=== PATIENT | female | born 1945 | race Two or more races ===

== ENCOUNTER 2018-10-26 21:44 | Inpatient (IN) | payer MEDICARE, MEDICAID ==
--- NOTE | 2018-10-26 22:33 | ED Physician Chart ---
ED Chief Complaint/HPI - Patient Information Date Seen:: 10/26/18 Time Seen:: 22:00 Chief Complaint:: chest and abdominal pain History of Present Illness:: Patient's had abdominal pain, chest pain and dizziness for the last 3 days. No vomiting or diarrhea. No dysuria. No fever. Allergies:: Allergies Allergy/AdvReac Type Severity Reaction Status Date / Time No Known Allergies Allergy Verified 10/26/18 21:55 Vitals:: Vital Signs - 8 hr 10/26/18 21:50 Temp 97.3 F HR 87 RR 17 BP 157/96 O2 Sat % 98 Historian:: Patient, Family Member Review:: Nurse's Note Reviewed ED Review of Systems - Review of Systems General/Constitutional: No fever, No chills, No weight loss, No weakness, No diaphoresis, No edema, No loss of appetite Skin: No skin lesions, No rash, No bruising Head: No headache, No light-headedness Eyes: No loss of vision, No pain, No diplopia ENT: No earache, No nasal drainage, No sore throat, No tinnitus Neck: No neck pain, No swelling, No thyromegaly, No stiffness, No mass noted Cardio Vascular: Chest pain, No palpitations, No PND, No orthopnea, No edema Pulmonary: No SOB, No cough, No sputum, No wheezing GI: No nausea, No vomiting, No diarrhea, Pain, No melena, No hematochezia, No constipation, No hematemesis G/U: No dysuria, No frequency, No hematuria Musculoskeletal: No bone or joint pain, No back pain, No muscle pain Endocrine: No polyuria, No polydipsia Psychiatric: No prior psych history, No depression, No anxiety, No suicidal ideation Hematopoietic: No bruising, No lymphadenopathy Allergic/Immuno: No urticaria, No angioedema Neurological: No syncope, No focal symptoms, No weakness, No paresthesia, No headache, No seizure, No dizziness, No confusion, No vertigo ED Past Medical History - Past Medical History Past Medical History: HTN, DM, Other (cirrhosis for 5 years; anemia) Family History: Heart disease, Diabetes Melitus, HTN, Cancer Social History: Non Smoker, No Alcohol Surgical History: None Psychiatricy History: None Medication: Reviewed Family Medical History - Family Member Daughter History Unknown: Yes ED Physical Exam - Physical Examination General/Constitutional: Awake Other Gen/Cons comments:: Abdomen very distended; mildly chronically ill-appearing; in no acute distress Head: Atraumatic Eyes: Lids, conjuctiva normal, PERRL Skin: Nl inspection ENMT: External ears, nose nl Other ENMT comments:: Edentulous with upper dentures Neck: No nuchal rigidity Respiratory: Nl effort/Exclusion, Clear to Auscultation Cardio Vascular: RRR, No murmur, gallop, rubs Other GI comments:: Diffuse abdominal tenderness more on the right side Extremities: Normal digits & nails Other Extremities comments:: 2 out of 4 pretibial pitting edema Neuro/Psych: No focal deficits ED Labs/Radiology/EKG Results - Lab Results Results: Laboratory Tests 10/26/18 21:52 POC Glucose 304 H Laboratory Results WBC 3.0 Th/cmm (4.8-10.8) L 10/26/18 22:20 RBC 3.04 Mil/cmm (3.80-5.20) L 10/26/18 22:20 Hgb 9.4 gm/dL (12-16) L 10/26/18 22:20 Hct 28.0 % (41.0-60) L 10/26/18 22:20 MCV 92.2 fl (81-100) 10/26/18 22:20 MCH 31.1 pg (27.0-31.0) H 10/26/18 22:20 MCHC Differential 33.7 pg (28.0-36.0) 10/26/18 22:20 RDW 14.4 % (11.5-20.0) 10/26/18 22:20 Plt Count 80 Th/cmm (150-400) L 10/26/18 22:20 MPV 7.9 fl 10/26/18 22:20 Neutrophils % 59.8 % (40.0-80.0) 10/26/18 22:20 Lymphocytes % 22.9 % (20.0-50.0) 10/26/18 22:20 Monocytes % 13.9 % (2.0-10.0) H 10/26/18 22:20 Eosinophils % 2.8 % (0.0-5.0) 10/26/18 22:20 Basophils % 0.6 % (0.0-2.0) 10/26/18 22:20 Sodium 135 mEq/L (136-145) L 10/26/18 22:20 Potassium 3.7 mEq/L (3.5-5.1) 10/26/18 22:20 Chloride 103 mEq/L (98-107) 10/26/18 22:20 Carbon Dioxide 25.3 mEq/L (21.0-31.0) 10/26/18 22:20 Anion Gap 10.4 (7.0-16.0) 10/26/18 22:20 BUN 14 mg/dL (7-25) 10/26/18 22:20 Creatinine 0.9 mg/dL (0.6-1.2) 10/26/18 22:20 Est GFR ( Amer) TNP 10/26/18 22:20 Est GFR (Non-Af Amer) TNP 10/26/18 22:20 BUN/Creatinine Ratio 15.6 10/26/18 22:20 Glucose 327 mg/dL (70-105) H 10/26/18 22:20 POC Glucose 304 MG/DL (70 - 105) H 10/26/18 21:52 Calcium 8.8 mg/dL (8.6-10.3) 10/26/18 22:20 Magnesium 1.7 mg/dL (1.9-2.7) L 10/26/18 22:20 Lipase 42 U/L (11-82) 10/26/18 22:20 - Radiology Results Results: Chest x-ray was negative ED Assessment - Assessment General Assessment: The radiologist called me and stated there were 2 bubbles next to the transverse duodenum which could represent free air. Radiologist suggested repeating CT of abdomen and pelvis with oral contrast. Spoke to Pattie and patient to be admitted to telemetry. ED Septic Shock - . Is Septic Shock (SBP<90, OR Lactate>4 mmol\L) present?: No - <6hrs of presentation: Vital Signs: Vital Signs - 8 hr 10/26/18 21:50 Temp 97.3 F HR 87 RR 17 BP 157/96 O2 Sat % 98 ED Reassessment (Disposition) - Reassessment Reassessment Condition:: Unchanged - Diagnosis Diagnosis:: Cirrhosis with ascites; pancytopenia - Patient Disposition Admitted to:: Telemetry Spoke to:: pattie Admitting Medical Physician:: Sadi Mack Condition at Disposition:: Stable, Unchanged
[2018-10-26 22:35] LABS: % BASOPHILS 0.6 % (0.0-2.0); % EOSINOPHILS 2.8 % (0.0-5.0); % LYMPHOCYTES 22.9 % (20.0-50.0); % MONOCYTES 13.9 % (2.0-10.0); % NEUTROPHILS 59.8 % (40.0-80.0); EOSINOPHILE ABSOLUTE 0.1 Th/cmm (0.1-0.4); HEMOGLOBIN 9.4 gm/dL (12-16); LYMPHOCYTE ABSOLUTE 0.7 Th/cmm (1.5-3.0); MEAN CELL VOLUME 92.2 fl (81-100); MEAN CORPUSCULAR HEMOGLOBIN 31.1 pg (27.0-31.0); MEAN CORPUSCULAR HGB CONC 33.7 pg (28.0-36.0); MEAN PLATELET VOLUME 7.9 fl; MONOCYTE ABSOLUTE 0.4 Th/cmm (0.3-1.0); NEUTROPHILE ABSOLUTE 1.8 Th/cmm (1.8-8.0); PLATELET COUNT 80 Th/cmm (150-400); RED BLOOD COUNT 3.04 Mil/cmm (3.80-5.20); RED CELL DISTRIBUTION WIDTH 14.4 % (11.5-20.0)
[2018-10-26 23:04] LABS: ANION GAP 10.4 (7.0-16.0); BUN - UREA NITROGEN 14 mg/dL (7-25); CALCIUM SERUM 8.8 mg/dL (8.6-10.3); CARBON DIOXIDE 25.3 mEq/L (21.0-31.0); CHLORIDE 103 mEq/L (98-107); CREATININE - SERUM 0.9 mg/dL (0.6-1.2); GLUCOSE 327 mg/dL (70-105); LIPASE 42 U/L (11-82); MAGNESIUM 1.7 mg/dL (1.9-2.7); POTASSIUM SERUM 3.7 mEq/L (3.5-5.1); SODIUM SERUM 135 mEq/L (136-145)
[2018-10-26 23:05] LABS: ALB/GLOB RATIO 0.7 (1.0-1.8); ALBUMIN 2.8 gm/dL (3.7-5.3); BILIRUBIN,DIRECT 0.54 mg/dL (0.0-0.2); BILIRUBIN,TOTAL 1.4 mg/dL (0.3-1.0); TOTAL PROTEIN,SERUM 6.8 gm/dL (6.0-8.3)
[2018-10-26 23:11] LABS: URINE SOURCE RANDOM
[2018-10-26 23:14] LABS: URINE BILIRUBIN NEGATIVE (NEGATIVE); URINE BLOOD MODERATE (NEGATIVE); URINE GLUCOSE (UA) >=1000 mg/dL (NEGATIVE); URINE KETONE NEGATIVE (NEGATIVE); URINE LEUKOCYTE ESTERASE TRACE (NEGATIVE); URINE MICROSCOPIC INDICATED? YES; URINE NITRATE NEGATIVE (NEGATIVE); URINE PROTEIN 30 mg/dL (NEGATIVE)
[2018-10-26 23:32] LABS: URINE CLARITY HAZY (CLEAR); URINE COLOR YELLOW
[2018-10-26 23:33] LABS: URINE BACTERIA MODERATE /hpf (NONE SEEN); URINE EPITHELIAL CELLS FEW /lpf (FEW); URINE RBC 0-2 /hpf (0-5)
[2018-10-27] MEDS ORDERED: Albuterol Nebulizer 2.5mg/3mL HHN PRN (04:23)
[2018-10-27] MEDS ORDERED: Maalox 30 mL Cup PO PRN (04:23)
[2018-10-27] MEDS ORDERED: Ipratropium Neb 0.5 mg/2.5 mL UD HHN PRN (04:23)
[2018-10-27] MEDS ORDERED: guaiFENesin 200 MG/10 ML UDC PO PRN (04:23)
[2018-10-27] MEDS: INSULIN LISPRO SLIDING SCALE 100 UNITS/ML UNIT SUBQ SCH ×4 (08:49→20:22)
[2018-10-27] MEDS: Enoxaparin 40 mg/0.4 mL 0.4mL Syr SUBQ SCH ×2 (08:54→20:21)
--- NOTE | 2018-10-27 09:10 | Diagnostic Imaging Report ---
Exam: CT examination abdomen pelvis. HISTORY: Abdominal pain distention. Total DLP equals 474 CTDI equals 9.2 Findings: Multiple contiguous thin section of the abdomen pelvis were obtained from lower thorax to pubic symphysis without the administration of oral or intravenous contrast material, no prior studies available comparison. The study demonstrates normal aeration of lung parenchyma the bases. Mild right basilar atelectasis is noted. There is evidence of for splenomegaly. There is evidence for splenic varices, surrounding mesenteric edema. Moderate amount of the cervix fluid is noted in the abdomen. The stomach serial distended with fluid content. There is a question of a small amount of the air in transverse portion of the duodenum which might represent pneumoperitoneum, this might represent peritendinitis clinical correlation recommended. The gallbladder is not visualized. Pancreas poorly seen. The kidneys demonstrate no evidence of obstructive uropathy or nephrolithiasis. There is evidence for midline supraumbilical hernia containing fluid, small bowel herniation cannot be excluded There is evidence for diverticulosis without diverticulitis. Calcified fibroid uterus. IMPRESSION: Splenomegaly Moderate amount of ascites Most likely portal venous hypertension. Mesenteric edema. Question of air collection around the transverse portion of duodenum this might represent peritonitis. Significant distended stomach with gastric content. Supraumbilical hernia with fluid content, small bowel herniation cannot be excluded. Mild diverticulosis without diverticulitis. Calcified fibroid uterus.
--- NOTE | 2018-10-27 09:10 | Diagnostic Imaging Report ---
Exam: Portable chest x-ray HISTORY: Pain Findings: Portable examination of chest at 2230 reviewed, no prior studies available comparison. The study demonstrates no active pulmonic infiltrates or effusions. Bony thorax intact. Degenerative changes shoulder joints appreciated. IMPRESSION no acute disease.
[2018-10-27 09:49] VITALS: BP 132/65
--- NOTE | 2018-10-27 10:25 | History & Physical ---
ADMIT DATE: 10/27/2018 DICTATED FOR: Dr. Sadi Mack. CHIEF COMPLAINT: Abdominal pain and chest discomfort. HISTORY OF PRESENT ILLNESS: This is a 73-year-old [place] speaking only female, who is accompanied by grandson at bedside. According to grandson at bedside, the patient has been having dizziness associated with chest discomfort for 3 days. The patient was also complaining of abdominal pain every time after she eats certain foods. The patient states that she does not remember what type of foods that it was that she ate that triggered her abdominal pain. The patient also complains of feeling bloated for about a month. No reports of any fevers at home. For further management, the patient is admitted to the telemetry unit. PAST MEDICAL HISTORY: Hypertension, diabetes, liver cirrhosis, anemia. FAMILY HISTORY: Noncontributory. SOCIAL HISTORY: The patient denies any alcohol or illicit drug usage, tobacco smoking. SURGICAL HISTORY: None. MEDICATIONS: Metformin 500 mg p.o. b.i.d. FAMILY HISTORY: Noncontributory. REVIEW OF SYSTEMS: GENERAL: Denies any fevers, any chills. CARDIOVASCULAR: Denies any chest pain. RESPIRATORY: Denies any shortness of breath. GASTROINTESTINAL: Denies nausea, vomiting, abdominal pain, but complains of bloatedness. All other systems are reviewed and are negative. PHYSICAL EXAMINATION: GENERAL: Elderly female, well developed, well nourished, in no apparent distress. VITAL SIGNS: Temperature 98.3, heart rate 84, blood pressure 132/65, respiration 18, O2 96%. HEAD: Normocephalic, atraumatic. NECK: Supple. No mass. LUNGS: Clear bilaterally. HEART: Regular rhythm. ABDOMEN: Soft, nontender, nondistended. EXTREMITIES: No edema noted. LABORATORY DATA: WBC 3.0, H and H 9.4 and 38.0. Sodium 135, potassium 3.7, chloride 103, BUN 14, creatinine 0.9, magnesium of 1.7. The patient had urinalysis done, positive for UTI. DIAGNOSTICS: The patient had a CT of the abdomen and pelvis done; impression is moderate amount of ascites, most likely portal venous hypertension; question of air collection around the transverse portion of the duodenum, this might represent peritonitis; mild diverticulosis without diverticulitis. PLAN: The patient to be admitted to the telemetry unit. We will get Cardiology as well as GI consultation. We will keep the patient on clear liquid diet for now, Accu-Chek a.c. and at bedtime. We will do deep venous thrombosis prophylaxis and we will do gastrointestinal prophylaxis as well. We will get followup labs for tomorrow morning. We will start the patient on empiric IV antibiotics for urinary tract infection of Levaquin 500 mg IV q. 24 hours. We will continue to follow this patient. JOB# [id number]
--- NOTE | 2018-10-27 14:17 | General Progress Note ---
Subjective - Review of Systems Service Date: 10/27/18 Subjective: --- Patient complaining of abdominal pain Objective - Results Result Diagrams: 10/26/18 22:20 10/26/18 22:20 Recent Labs: Laboratory Last Values WBC 3.0 Th/cmm (4.8-10.8) L 10/26/18 22:20 RBC 3.04 Mil/cmm (3.80-5.20) L 10/26/18 22:20 Hgb 9.4 gm/dL (12-16) L 10/26/18 22:20 Hct 28.0 % (41.0-60) L 10/26/18 22:20 MCV 92.2 fl (81-100) 10/26/18 22:20 MCH 31.1 pg (27.0-31.0) H 10/26/18 22:20 MCHC Differential 33.7 pg (28.0-36.0) 10/26/18 22:20 RDW 14.4 % (11.5-20.0) 10/26/18 22:20 Plt Count 80 Th/cmm (150-400) L 10/26/18 22:20 MPV 7.9 fl 10/26/18 22:20 Neutrophils % 59.8 % (40.0-80.0) 10/26/18 22:20 Lymphocytes % 22.9 % (20.0-50.0) 10/26/18 22:20 Monocytes % 13.9 % (2.0-10.0) H 10/26/18 22:20 Eosinophils % 2.8 % (0.0-5.0) 10/26/18 22:20 Basophils % 0.6 % (0.0-2.0) 10/26/18 22:20 Sodium 135 mEq/L (136-145) L 10/26/18 22:20 Potassium 3.7 mEq/L (3.5-5.1) 10/26/18 22:20 Chloride 103 mEq/L (98-107) 10/26/18 22:20 Carbon Dioxide 25.3 mEq/L (21.0-31.0) 10/26/18 22:20 Anion Gap 10.4 (7.0-16.0) 10/26/18 22:20 BUN 14 mg/dL (7-25) 04/19/19 22:20 Creatinine 0.9 mg/dL (0.6-1.2) 10/26/18 22:20 Est GFR ( Amer) TNP 10/26/18 22:20 Est GFR (Non-Af Amer) TNP 10/26/18 22:20 BUN/Creatinine Ratio 15.6 10/26/18 22:20 Glucose 327 mg/dL (70-105) H 10/26/18 22:20 POC Glucose 182 MG/DL (70 - 105) H 10/27/18 11:33 Whole Bld Lactic Acid 1.13 mmol/L (0.60-1.99) 10/26/18 22:20 Calcium 8.8 mg/dL (8.6-10.3) 10/26/18 22:20 Magnesium 1.7 mg/dL (1.9-2.7) L 10/26/18 22:20 Total Bilirubin 1.4 mg/dL (0.3-1.0) H 10/26/18 22:20 Direct Bilirubin 0.54 mg/dL (0.0-0.2) H 10/26/18 22:20 AST 44 U/L (13-39) H 10/26/18 22:20 ALT 22 U/L (7-52) 10/26/18 22:20 Alkaline Phosphatase 269 U/L (34-104) H 10/26/18 22:20 Troponin I 0.01 ng/mL (0.01-0.05) 10/26/18 22:20 B-Natriuretic Peptide 52.4 pg/mL (5.0-100.0) 10/26/18 22:20 Total Protein 6.8 gm/dL (6.0-8.3) 10/26/18 22:20 Albumin 2.8 gm/dL (3.7-5.3) L 10/26/18 22:20 Globulin 4.0 gm/dL 10/26/18 22:20 Albumin/Globulin Ratio 0.7 (1.0-1.8) L 10/26/18 22:20 Lipase 42 U/L (11-82) 10/26/18 22:20 Urine Source RANDOM 10/26/18 22:00 Urine Color YELLOW 10/26/18 22:00 Urine Clarity HAZY (CLEAR) 10/26/18 22:00 Urine pH 6.0 (4.6 - 8.0) 10/26/18 22:00 Ur Specific [place] 1.020 (1.005-1.030) 10/26/18 22:00 Urine Protein 30 mg/dL (NEGATIVE) H 10/26/18 22:00 Urine Glucose (UA) >=1000 mg/dL (NEGATIVE) H 10/26/18 22:00 Urine Ketones NEGATIVE mg/dL (NEGATIVE) 10/26/18 22:00 Urine Blood MODERATE (NEGATIVE) H 10/26/18 22:00 Urine Nitrate NEGATIVE (NEGATIVE) 10/26/18 22:00 Urine Bilirubin NEGATIVE (NEGATIVE) 10/26/18 22:00 Urine Urobilinogen 4.0 E.U./dL (0.2 - 1.0) H 10/26/18 22:00 Ur Leukocyte Esterase TRACE (NEGATIVE) H 10/26/18 22:00 Urine RBC 0-2 /hpf (0-5) 10/26/18 22:00 Urine WBC 6-10 /hpf (0-5) H 10/26/18 22:00 Ur Epithelial Cells FEW /lpf (FEW) 10/26/18 22:00 Urine Bacteria MODERATE /hpf (NONE SEEN) H 10/26/18 22:00 - Physical Exam Vitals and I&O: Vital Signs Temp 97.1 F 10/27/18 12:16 Pulse 81 10/27/18 12:16 Resp 18 10/27/18 13:17 BP 125/65 10/27/18 12:16 Pulse Ox 98 10/27/18 12:16 Intake & Output 10/26/18 10/27/18 10/27/18 18:59 06:59 18:59 Weight (lbs) 56.245 kg 59.874 kg Other: Weight Source Standing scale Bedscale Active Medications: Current Medications Al Hydrox/Mg Hydrox/Simethicone (Maalox) 30 ml PO Q6HR PRN PRN Reason: Dyspepsia Stop: 12/26/18 04:22 Albuterol Sulfate (Albuterol 2.5mg/3ml Neb Ud) 2.5 mg HHN Q2HRT PRN PRN Reason: Shortness of Breath or Wheeze Stop: 12/26/18 04:22 Enoxaparin Sodium (Lovenox) 40 mg SUBQ Q12HR [facility] Stop: 12/26/18 08:59 Last Admin: 10/27/18 08:54 Dose: Not Given Guaifenesin (Robitussin) 100 mg PO Q4H PRN PRN Reason: Cough or Congestion Stop: 12/26/18 04:22 Insulin Human Lispro (Humalog Insulin Sliding Scale) 0 units SUBQ ACHS [facility]; Protocol Stop: 12/26/18 07:29 Last Admin: 10/27/18 12:35 Dose: 2 units Ipratropium [place] (Atrovent Neb 0.5mg/2.5ml) 0.5 mg HHN Q2HRT PRN PRN Reason: Shortness of Breath or Wheeze Stop: 12/26/18 04:22 Metformin HCl (Glucophage) 500 mg PO BID [facility] Stop: 12/26/18 16:59 Ondansetron HCl (Zofran) 4 mg IV Q8H PRN PRN Reason: Nausea / Vomiting Stop: 12/26/18 04:22 Pantoprazole Sodium (Protonix) 40 mg IVP DAILY [facility] Stop: 12/26/18 08:59 Last Admin: 10/27/18 08:49 Dose: 40 mg General: Alert, Oriented x3, No acute distress HEENT: Mucous membr. moist/pink Neck: Supple, JVD, +2 carotid pulse wo bruit (flat) Cardiovascular: Regular rate, Normal S1, Normal S2, Systolic murmurs Abdomen: Bowel sounds, Soft, Splenomegaly, Distended, Other (small ascites) Extremities: Pulses (normal) Neurological: Normal gait, Normal speech, Strength at 5/5 X4 ext, Normal tone, Cranial nerves 3-12 NL, Reflexes 2+ Assessment/Plan - Assessment Assessment: Cirrhosis of liver Splenomegaly Anemia Thrombocytopenia Diabetes mellitus type 2 insulin-dependent Supraumbilical hernia Diverticulosis Hypo magnesium - Plan Plan: Patient to have a GI consult Echocardiogram magnesium supplement Nutritional Asmnt/Malnutr-PDOC - Dietary Evaluation Malnutrition Findings (Please click <Entered> for more info): Nutritional Asmnt/Malnutrition Start: 10/27/18 13: 11 Text: Status: Active Freq: Protocol: Document 10/27/18 13:11 MMHERI (Rec: 10/27/18 13:21 [facility] Nutritional Asmnt/Malnutrition Patient General Information Nutritional Screening High Risk Consult Diagnosis Chest pain Pertinent Medical Hx/Surgical Hx HTN, diabetes, liver cirrhosis , anemia Subjective Information Kinyarwanda speaking Current Diet Order/ Nutrition Support Clear liquid Patient / S.O Not Indicated Pertinent Medications maalox, humalog, metformin, zofran, protonix Pertinent Labs (10/26) Na 135, glucose 182-327 , Mg 1.7, albumin 2.8 Nutritional Hx/Data Height 1.5 m Height (Calculated Centimeters) 149.9 Current Weight (lbs) 59.874 kg Weight (Calculated Kilograms) 59.9 Weight (Calculated Grams) 69842.2 [place] Body Weight 97.5 % [place] Body Weight 135 Body Mass Index (BMI) 26.6 Recent Weight Change No Weight Status Overweight GI Symptoms GI Symptoms None Last BM none noted since admission Difficult in: None Food Allergies No Cultural/Ethnic/Quaker Belief none indicated Usual diet at home unknown Skin Integrity/Comment: Heri 17, intact Estimated Nutritional Goals BEE in Kcals: Using Current wt Calories/Kcals/Kg CBW 60kg 22-27 kcal/kg Kcals Calculated ~9144-0289 kcal/day Protein: Using Current wt Protein g/k.8-1 gm/kg Protein Calculated ~50-60 gm/day Fluid: ml ~7551-9832 ml/day Nutritional Problem 2. Problem Problem Inadequate oral intake related to Etiology diet order not progressed Signs/Symptoms: aeb Meeting <50% of nutrient needs on clear liquid diet 1. Problem Problem Altered nutrition related lab values related to Etiology uncontrolled hyperglycemia aeb Signs/Symptoms: glucose 182-327 Intervention/Recommendation Comments 1. WHen medically appropriate, advance diet to 45 gm CCHO 2. MD to continue to modify insulin regimen for optimal glycemic control Expected Outcomes/Goals Expected Outcomes/Goals Diet progresses to 45 gm CCHO, glucose normalizes, oral intake <75% of meals, weight stable F/U MR 10/30-
[2018-10-27] MEDS ORDERED: Mag Sulfate 2gm/50mL Premix 2 GM/50 ML BAG IV ONE (14:19)
[2018-10-27] MEDS: cefTRIAXone 1 GM in Sodium Chloride 0.9% 50 ML IV SCH (22:18)
--- NOTE | 2018-10-28 01:40 | Consultation ---
DATE OF CONSULTATION: 10/27/[address] Mack. HISTORY AND PHYSICAL: This is a 73-year-old female patient, recently was brought in by the grandson complaining of weakness, dizziness, and abdominal pain. No nausea or vomiting. PAST MEDICAL HISTORY: Diabetes mellitus type 2, cirrhosis of the liver, splenomegaly, anemia, ascites, thrombocytopenia; diabetes mellitus type 2, insulin dependence; supraumbilical hernia, diverticulosis, hypomagnesemia, hypokalemia, anemia, and thrombocytopenia. FAMILY HISTORY: Unremarkable. SOCIAL HISTORY: No history of smoking or alcohol abuse. ALLERGIES: None. PHYSICAL EXAMINATION: VITAL SIGNS: Blood pressure 130/80, pulse 80, and respirations 28. HEAD: Normocephalic. No lumps or bumps. EYES: Pupils equal, reactive to light. Fundi show AV nicking, sclerae white, conjunctivae pink. NECK: Carotid 2+. Normal upstroke. JVD flat. Thyroid not palpable. Lymph nodes not palpable. CHEST: Shows increased AP diameter. No kyphosis or scoliosis. LUNGS: Bilateral bronchovesicular breath sounds. Occasional wheeze. No rales. HEART: PMI fifth intercostal space with lateral to midclavicular line. S1, S2, S3, S4, soft systolic murmur. ABDOMEN: Soft. Liver, spleen not palpable. No organomegaly. Bowel sounds active. NEUROLOGIC: Unremarkable. EXTREMITIES: Peripheral pulses 2+. No pedal edema. CLINICAL IMPRESSION: Cirrhosis of liver; diabetes mellitus type 2, insulin-dependent; anemia, iron deficiency; thrombocytopenia; insulin-dependent diabetes mellitus; supraumbilical hernia; diverticulosis; hypomagnesemia; hypokalemia; anemia; thrombocytopenia; splenomegaly, and ascites. PLAN: Admit the patient. We will continue present management. Have GI consult and monitor the patient. We will get echocardiogram to rule out any cardiomegaly with pericardial effusion. [facility]# [id number]
[2018-10-28 06:17] LABS: % BASOPHILS 0.8 % (0.0-2.0); % EOSINOPHILS 3.3 % (0.0-5.0); % LYMPHOCYTES 26.6 % (20.0-50.0); % MONOCYTES 11.8 % (2.0-10.0); % NEUTROPHILS 57.5 % (40.0-80.0); EOSINOPHILE ABSOLUTE 0.1 Th/cmm (0.1-0.4); HEMATOCRIT 27.7 % (41.0-60); HEMOGLOBIN 9.3 gm/dL (12-16); LYMPHOCYTE ABSOLUTE 0.9 Th/cmm (1.5-3.0); MEAN CELL VOLUME 92.5 fl (81-100); MEAN CORPUSCULAR HEMOGLOBIN 30.9 pg (27.0-31.0); MEAN CORPUSCULAR HGB CONC 33.4 pg (28.0-36.0); MEAN PLATELET VOLUME 8.1 fl; MONOCYTE ABSOLUTE 0.4 Th/cmm (0.3-1.0); NEUTROPHILE ABSOLUTE 2.1 Th/cmm (1.8-8.0); PLATELET COUNT 60 Th/cmm (150-400); RED CELL DISTRIBUTION WIDTH 14.2 % (11.5-20.0)
[2018-10-28 06:30] LABS: ANION GAP 9.1 (7.0-16.0); BUN - UREA NITROGEN 16 mg/dL (7-25); CALCIUM SERUM 8.5 mg/dL (8.6-10.3); CARBON DIOXIDE 22.5 mEq/L (21.0-31.0); CHLORIDE 109 mEq/L (98-107); CREATININE - SERUM 0.7 mg/dL (0.6-1.2); GLUCOSE 138 mg/dL (70-105); POTASSIUM SERUM 3.6 mEq/L (3.5-5.1); SODIUM SERUM 137 mEq/L (136-145)
[2018-10-28] MEDS: INSULIN LISPRO SLIDING SCALE 100 UNITS/ML UNIT SUBQ SCH ×4 (06:35→21:42)
[2018-10-28 07:10] LABS: WHITE BLOOD COUNT 3.5 Th/cmm (4.8-10.8)
[2018-10-28] MEDS: Enoxaparin 40 mg/0.4 mL 0.4mL Syr SUBQ SCH ×2 (10:04→21:46)
--- NOTE | 2018-10-28 14:48 | General Progress Note ---
Subjective - Review of Systems Service Date: 10/28/18 Subjective: --- Patient complaining of abdominal pain no complaint of shortness of breath Objective - Results Result Diagrams: 10/28/18 05:35 10/28/18 05:35 Recent Labs: Laboratory Last Values WBC 3.5 Th/cmm (4.8-10.8) L 10/28/18 05:35 RBC 3.00 Mil/cmm (3.80-5.20) L 10/28/18 05:35 Hgb 9.3 gm/dL (12-16) L 10/28/18 05:35 Hct 27.7 % (41.0-60) L 10/28/18 05:35 MCV 92.5 fl (81-100) 10/28/18 05:35 MCH 30.9 pg (27.0-31.0) 10/28/18 05:35 MCHC Differential 33.4 pg (28.0-36.0) 10/28/18 05:35 RDW 14.2 % (11.5-20.0) 10/28/18 05:35 Plt Count 60 Th/cmm (150-400) L 10/28/18 05:35 MPV 8.1 fl 10/28/18 05:35 Neutrophils % 57.5 % (40.0-80.0) 10/28/18 05:35 Lymphocytes % 26.6 % (20.0-50.0) 10/28/18 05:35 Monocytes % 11.8 % (2.0-10.0) H 10/28/18 05:35 Eosinophils % 3.3 % (0.0-5.0) 10/28/18 05:35 Basophils % 0.8 % (0.0-2.0) 10/28/18 05:35 Sodium 137 mEq/L (136-145) 10/28/18 05:35 Potassium 3.6 mEq/L (3.5-5.1) 10/28/18 05:35 Chloride 109 mEq/L (98-107) H 10/28/18 05:35 Carbon Dioxide 22.5 mEq/L (21.0-31.0) 10/28/18 05:35 Anion Gap 9.1 (7.0-16.0) 10/28/18 05:35 BUN 16 mg/dL (7-25) 10/28/18 05:35 Creatinine 0.7 mg/dL (0.6-1.2) 10/28/18 05:35 Est GFR ( Amer) TNP 10/28/18 05:35 Est GFR (Non-Af Amer) TNP 10/28/18 05:35 BUN/Creatinine Ratio 22.9 10/28/18 05:35 Glucose 138 mg/dL (70-105) H 10/28/18 05:35 POC Glucose 121 MG/DL (70 - 105) H 10/28/18 11:42 Whole Bld Lactic Acid 1.13 mmol/L (0.60-1.99) 10/26/18 22:20 Calcium 8.5 mg/dL (8.6-10.3) L 10/28/18 05:35 Magnesium 2.0 mg/dL (1.9-2.7) 10/28/18 05:35 Total Bilirubin 1.4 mg/dL (0.3-1.0) H 10/26/18 22:20 Direct Bilirubin 0.54 mg/dL (0.0-0.2) H 10/26/18 22:20 AST 44 U/L (13-39) H 10/26/18 22:20 ALT 22 U/L (7-52) 10/26/18 22:20 Alkaline Phosphatase 269 U/L (34-104) H 10/26/18 22:20 Troponin I 0.01 ng/mL (0.01-0.05) 10/26/18 22:20 B-Natriuretic Peptide 50.1 pg/mL (5.0-100.0) 10/28/18 05:35 Total Protein 6.8 gm/dL (6.0-8.3) 10/26/18 22:20 Albumin 2.8 gm/dL (3.7-5.3) L 10/26/18 22:20 Globulin 4.0 gm/dL 10/26/18 22:20 Albumin/Globulin Ratio 0.7 (1.0-1.8) L 10/26/18 22:20 Lipase 42 U/L (11-82) 10/26/18 22:20 Urine Source RANDOM 10/26/18 22:00 Urine Color YELLOW 10/26/18 22:00 Urine Clarity HAZY (CLEAR) 10/26/18 22:00 Urine pH 6.0 (4.6 - 8.0) 10/26/18 22:00 Ur Specific [place] 1.020 (1.005-1.030) 10/26/18 22:00 Urine Protein 30 mg/dL (NEGATIVE) H 10/26/18 22:00 Urine Glucose (UA) >=1000 mg/dL (NEGATIVE) H 10/26/18 22:00 Urine Ketones NEGATIVE mg/dL (NEGATIVE) 10/26/18 22:00 Urine Blood MODERATE (NEGATIVE) H 10/26/18 22:00 Urine Nitrate NEGATIVE (NEGATIVE) 10/26/18 22:00 Urine Bilirubin NEGATIVE (NEGATIVE) 10/26/18 22:00 Urine Urobilinogen 4.0 E.U./dL (0.2 - 1.0) H 10/26/18 22:00 Ur Leukocyte Esterase TRACE (NEGATIVE) H 10/26/18 22:00 Urine RBC 0-2 /hpf (0-5) 10/26/18 22:00 Urine WBC 6-10 /hpf (0-5) H 10/26/18 22:00 Ur Epithelial Cells FEW /lpf (FEW) 10/26/18 22:00 Urine Bacteria MODERATE /hpf (NONE SEEN) H 10/26/18 22:00 - Physical Exam Vitals and I&O: Vital Signs Temp 97.5 F 10/28/18 12:00 Pulse 76 10/28/18 12:00 Resp 18 10/28/18 12:00 BP 128/74 10/28/18 12:00 Pulse Ox 98 10/28/18 12:00 Intake & Output 10/27/18 10/28/18 10/28/18 18:59 06:59 18:59 Intake Total 500 290 Balance 500 290 Weight (lbs) 59.874 kg 59.874 kg Intake: Intake, IV Amount 50 cefTRIAXone 1 gm In 50 Sodium Chloride 0.9% 50 ml @ 100 mls/hr IV Q24HR COUNTS INCLUDE 234 BEDS AT THE [facility] Rx#:[id number] Oral 500 240 Other: # Voids 3 2 # Bowel Movements 1 0 Stool Characteristics Soft Formed Brown Weight Source Bedscale Bedscale Active Medications: Current Medications Al Hydrox/Mg Hydrox/Simethicone (Maalox) 30 ml PO Q6HR PRN PRN Reason: Dyspepsia Stop: 12/26/18 04:22 Albuterol Sulfate (Albuterol 2.5mg/3ml Neb Ud) 2.5 mg HHN Q2HRT PRN PRN Reason: Shortness of Breath or Wheeze Stop: 12/26/18 04:22 Enoxaparin Sodium (Lovenox) 40 mg SUBQ Q12HR [facility] Stop: 12/26/18 08:59 Last Admin: 10/28/18 10:04 Dose: Not Given Guaifenesin (Robitussin) 100 mg PO Q4H PRN PRN Reason: Cough or Congestion Stop: 12/26/18 04:22 Ceftriaxone Sodium 1 gm/ (Sodium Chloride) 50 mls @ 100 mls/hr IV Q24HR COUNTS INCLUDE 234 BEDS AT THE [facility] Stop: 12/26/18 21:59 Last Infusion: 10/27/18 22:48 Dose: Infused Insulin Human Lispro (Humalog Insulin Sliding Scale) 0 units SUBQ ACHS COUNTS INCLUDE 234 BEDS AT THE [facility]; Protocol Stop: 12/26/18 07:29 Last Admin: 10/28/18 11:59 Dose: Not Given Ipratropium [place] (Atrovent Neb 0.5mg/2.5ml) 0.5 mg HHN Q2HRT PRN PRN Reason: Shortness of Breath or Wheeze Stop: 12/26/18 04:22 Ondansetron HCl (Zofran) 4 mg IV Q8H PRN PRN Reason: Nausea / Vomiting Stop: 12/26/18 04:22 Pantoprazole Sodium (Protonix) 40 mg IVP DAILY COUNTS INCLUDE 234 BEDS AT THE [facility] Stop: 12/26/18 08:59 Last Admin: 10/28/18 09:11 Dose: 40 mg General: Alert, Oriented x3, No acute distress HEENT: Mucous membr. moist/pink Neck: Supple, JVD, +2 carotid pulse wo bruit (flat) Cardiovascular: Regular rate, Normal S1, Normal S2, Systolic murmurs Abdomen: Bowel sounds, Soft, Splenomegaly, Distended, Other (small ascites) Extremities: Pulses (normal) Neurological: Normal gait, Normal speech, Strength at 5/5 X4 ext, Normal tone, Cranial nerves 3-12 NL, Reflexes 2+ Assessment/Plan - Assessment Assessment: Cirrhosis of liver Splenomegaly Anemia Thrombocytopenia Diabetes mellitus type 2 insulin-dependent Supraumbilical hernia Diverticulosis Hypo magnesium - Plan Plan: Patient to have a GI consult Echocardiogram magnesium supplement Nutritional Asmnt/Malnutr-PDOC - Dietary Evaluation Malnutrition Findings (Please click <Entered> for more info): Nutritional Asmnt/Malnutrition Start: 10/27/18 13: 11 Text: Status: Complete Freq: Protocol: Document 10/27/18 13:11 [email or web address] (Rec: 10/27/18 13:21 KAILEY KIRA- [email or web address]) Nutritional Asmnt/Malnutrition Patient General Information Nutritional Screening High Risk Consult Diagnosis Chest pain Pertinent Medical Hx/Surgical Hx HTN, diabetes, liver cirrhosis , anemia Subjective Information Patient states she would like some more jello; fair appetite . Current Diet Order/ Nutrition Support Clear liquid Patient / S.O Not Indicated Pertinent Medications maalox, humalog, metformin, zofran, protonix Pertinent Labs (10/26) Na 135, glucose 182-327 , Mg 1.7, albumin 2.8 Nutritional Hx/Data Height 1.5 m Height (Calculated Centimeters) 149.9 Current Weight (lbs) 59.874 kg Weight (Calculated Kilograms) 59.9 Weight (Calculated Grams) 88769.2 [place] Body Weight 97.5 % [place] Body Weight 135 Body Mass Index (BMI) 26.6 Recent Weight Change No Weight Status Overweight GI Symptoms GI Symptoms None Last BM none noted since admission Difficult in: None Food Allergies No Cultural/Ethnic/Mu-Ism Belief none indicated Usual diet at home unknown Skin Integrity/Comment: Heri 17, intact Estimated Nutritional Goals BEE in Kcals: Using Current wt Calories/Kcals/Kg CBW 60kg 22-27 kcal/kg Kcals Calculated ~3216-7101 kcal/day Protein: Using Current wt Protein g/k.8-1 gm/kg Protein Calculated ~50-60 gm/day Fluid: ml ~3372-9473 ml/day Nutritional Problem 2. Problem Problem Inadequate oral intake related to Etiology diet order not progressed Signs/Symptoms: aeb Meeting <50% of nutrient needs on clear liquid diet 1. Problem Problem Altered nutrition related lab values related to Etiology uncontrolled hyperglycemia aeb Signs/Symptoms: glucose 182-327 Intervention/Recommendation Comments 1. WHen medically appropriate, advance diet to 45 gm CCHO 2. MD to continue to modify insulin regimen for optimal glycemic control Expected Outcomes/Goals Expected Outcomes/Goals Diet progresses to 45 gm CCHO, glucose normalizes, oral intake <75% of meals, weight stable F/U MR 10/30-
--- NOTE | 2018-10-28 16:09 | Internal Medicine Prog Note ---
Internal Medicine Subjective - Subjective Service Date: 10/28/18 (patient seen and examined. awake, alert refused paracentesis today explained to patient importance of paracentesis patient refused she states that she does not want any procedures done at this time. encouraged patient for paracentesis to be done still refused. ) Patient seen and examined:: with staff Patient is:: awake, verbal Per staff patient has:: tolerating meds, refusing care Internal Medicine Objective - Results Result Diagrams: 10/28/18 05:35 10/28/18 05:35 Recent Labs: Laboratory Last Values WBC 3.5 Th/cmm (4.8-10.8) L 10/28/18 05:35 RBC 3.00 Mil/cmm (3.80-5.20) L 10/28/18 05:35 Hgb 9.3 gm/dL (12-16) L 10/28/18 05:35 Hct 27.7 % (41.0-60) L 10/28/18 05:35 MCV 92.5 fl (81-100) 10/28/18 05:35 MCH 30.9 pg (27.0-31.0) 10/28/18 05:35 MCHC Differential 33.4 pg (28.0-36.0) 10/28/18 05:35 RDW 14.2 % (11.5-20.0) 10/28/18 05:35 Plt Count 60 Th/cmm (150-400) L 10/28/18 05:35 MPV 8.1 fl 10/28/18 05:35 Neutrophils % 57.5 % (40.0-80.0) 10/28/18 05:35 Lymphocytes % 26.6 % (20.0-50.0) 10/28/18 05:35 Monocytes % 11.8 % (2.0-10.0) H 10/28/18 05:35 Eosinophils % 3.3 % (0.0-5.0) 10/28/18 05:35 Basophils % 0.8 % (0.0-2.0) 10/28/18 05:35 Sodium 137 mEq/L (136-145) 10/28/18 05:35 Potassium 3.6 mEq/L (3.5-5.1) 10/28/18 05:35 Chloride 109 mEq/L (98-107) H 10/28/18 05:35 Carbon Dioxide 22.5 mEq/L (21.0-31.0) 10/28/18 05:35 Anion Gap 9.1 (7.0-16.0) 10/28/18 05:35 BUN 16 mg/dL (7-25) 10/28/18 05:35 Creatinine 0.7 mg/dL (0.6-1.2) 10/28/18 05:35 Est GFR ( Amer) TNP 10/28/18 05:35 Est GFR (Non-Af Amer) TNP 10/28/18 05:35 BUN/Creatinine Ratio 22.9 10/28/18 05:35 Glucose 138 mg/dL (70-105) H 10/28/18 05:35 POC Glucose 121 MG/DL (70 - 105) H 10/28/18 11:42 Whole Bld Lactic Acid 1.13 mmol/L (0.60-1.99) 10/26/18 22:20 Calcium 8.5 mg/dL (8.6-10.3) L 10/28/18 05:35 Magnesium 2.0 mg/dL (1.9-2.7) 10/28/18 05:35 Total Bilirubin 1.4 mg/dL (0.3-1.0) H 10/26/18 22:20 Direct Bilirubin 0.54 mg/dL (0.0-0.2) H 10/26/18 22:20 AST 44 U/L (13-39) H 10/26/18 22:20 ALT 22 U/L (7-52) 10/26/18 22:20 Alkaline Phosphatase 269 U/L (34-104) H 10/26/18 22:20 Troponin I 0.01 ng/mL (0.01-0.05) 10/26/18 22:20 B-Natriuretic Peptide 50.1 pg/mL (5.0-100.0) 10/28/18 05:35 Total Protein 6.8 gm/dL (6.0-8.3) 10/26/18 22:20 Albumin 2.8 gm/dL (3.7-5.3) L 10/26/18 22:20 Globulin 4.0 gm/dL 10/26/18 22:20 Albumin/Globulin Ratio 0.7 (1.0-1.8) L 10/26/18 22:20 Lipase 42 U/L (11-82) 10/26/18 22:20 Urine Source RANDOM 10/26/18 22:00 Urine Color YELLOW 10/26/18 22:00 Urine Clarity HAZY (CLEAR) 10/26/18 22:00 Urine pH 6.0 (4.6 - 8.0) 10/26/18 22:00 Ur Specific [place] 1.020 (1.005-1.030) 10/26/18 22:00 Urine Protein 30 mg/dL (NEGATIVE) H 10/26/18 22:00 Urine Glucose (UA) >=1000 mg/dL (NEGATIVE) H 10/26/18 22:00 Urine Ketones NEGATIVE mg/dL (NEGATIVE) 10/26/18 22:00 Urine Blood MODERATE (NEGATIVE) H 10/26/18 22:00 Urine Nitrate NEGATIVE (NEGATIVE) 10/26/18 22:00 Urine Bilirubin NEGATIVE (NEGATIVE) 10/26/18 22:00 Urine Urobilinogen 4.0 E.U./dL (0.2 - 1.0) H 10/26/18 22:00 Ur Leukocyte Esterase TRACE (NEGATIVE) H 10/26/18 22:00 Urine RBC 0-2 /hpf (0-5) 10/26/18 22:00 Urine WBC 6-10 /hpf (0-5) H 10/26/18 22:00 Ur Epithelial Cells FEW /lpf (FEW) 10/26/18 22:00 Urine Bacteria MODERATE /hpf (NONE SEEN) H 10/26/18 22:00 - Physical Exam Vitals and I&O: Vital Signs Temp 97.5 F 10/28/18 12:00 Pulse 76 10/28/18 12:00 Resp 18 10/28/18 12:00 BP 128/74 10/28/18 12:00 Pulse Ox 98 10/28/18 12:00 Intake & Output 10/27/18 10/28/18 10/28/18 18:59 06:59 18:59 Intake Total 500 290 Balance 500 290 Weight (lbs) 132 lb 132 lb Intake: Intake, IV Amount 50 cefTRIAXone 1 gm In 50 Sodium Chloride 0.9% 50 ml @ 100 mls/hr IV Q24HR [facility] Rx#:[id number] Oral 500 240 Other: # Voids 3 2 # Bowel Movements 1 0 Stool Characteristics Soft Formed Brown Weight Source Bedscale Bedscale Active Medications: Current Medications Al Hydrox/Mg Hydrox/Simethicone (Maalox) 30 ml PO Q6HR PRN PRN Reason: Dyspepsia Stop: 12/26/18 04:22 Albuterol Sulfate (Albuterol 2.5mg/3ml Neb Ud) 2.5 mg HHN Q2HRT PRN PRN Reason: Shortness of Breath or Wheeze Stop: 12/26/18 04:22 Enoxaparin Sodium (Lovenox) 40 mg SUBQ Q12HR [facility] Stop: 12/26/18 08:59 Last Admin: 10/28/18 10:04 Dose: Not Given Guaifenesin (Robitussin) 100 mg PO Q4H PRN PRN Reason: Cough or Congestion Stop: 12/26/18 04:22 Ceftriaxone Sodium 1 gm/ (Sodium Chloride) 50 mls @ 100 mls/hr IV Q24HR [facility] Stop: 12/26/18 21:59 Last Infusion: 10/27/18 22:48 Dose: Infused Insulin Human Lispro (Humalog Insulin Sliding Scale) 0 units SUBQ ACHS [facility]; Protocol Stop: 12/26/18 07:29 Last Admin: 10/28/18 11:59 Dose: Not Given Ipratropium [place] (Atrovent Neb 0.5mg/2.5ml) 0.5 mg HHN Q2HRT PRN PRN Reason: Shortness of Breath or Wheeze Stop: 12/26/18 04:22 Ondansetron HCl (Zofran) 4 mg IV Q8H PRN PRN Reason: Nausea / Vomiting Stop: 12/26/18 04:22 Pantoprazole Sodium (Protonix) 40 mg IVP DAILY [facility] Stop: 12/26/18 08:59 Last Admin: 10/28/18 09:11 Dose: 40 mg General: alert HEENT: NC/AT, PERRLA Neck: Supple Lungs: CTAB Abdomen: soft, non-tender, globular, other Extremities: clear Neurological: alert Internal Medicine Assmt/Plan - Assessment Assessment: Acute urinary tract infection, acute renal failure, morbidly obese, anemia, hypomagnesemia, morbid obesity, hypertension, congestive heart failure, asthma, chronic obstructive pulmonary disease, type 2 diabetes. - Plan Plan: dc home once cleared by gi.. patient refused paracentesis patient educated to follow up with pcp tomorrow. Nutritional Asmnt/Malnutr-PDOC - Dietary Evaluation Malnutrition Findings (Please click <Entered> for more info): Nutritional Asmnt/Malnutrition Start: 10/27/18 13: 11 Text: Status: Complete Freq: Protocol: Document 10/27/18 13:11 KAILEY (Rec: 10/27/18 13:21 KAILEY MALONE- [email or web address]) Nutritional Asmnt/Malnutrition Patient General Information Nutritional Screening High Risk Consult Diagnosis Chest pain Pertinent Medical Hx/Surgical Hx HTN, diabetes, liver cirrhosis , anemia Subjective Information Patient states she would like some more jello; fair appetite . Current Diet Order/ Nutrition Support Clear liquid Patient / S.O Not Indicated Pertinent Medications maalox, humalog, metformin, zofran, protonix Pertinent Labs (10/26) Na 135, glucose 182-327 , Mg 1.7, albumin 2.8 Nutritional Hx/Data Height 4 ft 11 in Height (Calculated Centimeters) 149.9 Current Weight (lbs) 132 lb Weight (Calculated Kilograms) 59.9 Weight (Calculated Grams) 51931.2 [place] Body Weight 97.5 % [place] Body Weight 135 Body Mass Index (BMI) 26.6 Recent Weight Change No Weight Status Overweight GI Symptoms GI Symptoms None Last BM none noted since admission Difficult in: None Food Allergies No Cultural/Ethnic/Congregational Belief none indicated Usual diet at home unknown Skin Integrity/Comment: Heri 17, intact Estimated Nutritional Goals BEE in Kcals: Using Current wt Calories/Kcals/Kg CBW 60kg 22-27 kcal/kg Kcals Calculated ~7501-7735 kcal/day Protein: Using Current wt Protein g/k.8-1 gm/kg Protein Calculated ~50-60 gm/day Fluid: ml ~0237-1021 ml/day Nutritional Problem 2. Problem Problem Inadequate oral intake related to Etiology diet order not progressed Signs/Symptoms: aeb Meeting <50% of nutrient needs on clear liquid diet 1. Problem Problem Altered nutrition related lab values related to Etiology uncontrolled hyperglycemia aeb Signs/Symptoms: glucose 182-327 Intervention/Recommendation Comments 1. WHen medically appropriate, advance diet to 45 gm CCHO 2. MD to continue to modify insulin regimen for optimal glycemic control Expected Outcomes/Goals Expected Outcomes/Goals Diet progresses to 45 gm CCHO, glucose normalizes, oral intake <75% of meals, weight stable F/U MR 10/30-
[2018-10-28] MEDS: cefTRIAXone 1 GM in Sodium Chloride 0.9% 50 ML IV SCH (21:46)
--- NOTE | 2018-10-28 21:59 | Consultation ---
DATE OF CONSULTATION: 10/28/2018 INPATIENT GASTROINTESTINAL CONSULTATION CONSULTING PHYSICIAN: Dr. Mack. REASON FOR CONSULTATION: Liver cirrhosis and ascites, abdominal pain. HISTORY OF PRESENT ILLNESS: The patient is a 73-year-old female with past medical history significant for liver cirrhosis, type 2 diabetes and hypertension, who is admitted to the hospital with abdominal distention and chest pain. The history is obtained from the patient using a tub operator as well as from the chart. Apparently, the patient did have initial complaint with dizziness and chest pain. However, on the initial interview, she then described having some abdominal discomfort and bloating after eating certain food. Today, she is reporting that she has been feeling more distended over the past week than her usual. She denies ever having fluid drained from her belly in the past, but does report knowing about her diagnosis of liver cirrhosis which she thinks may be from fatty liver disease. She denies ever having EGD or colonoscopy in the past. The initial ER evaluation consisted of a noncontrast CT scan that showed some possible air surrounding the duodenum and a moderate amount of ascites. At the current time, she is pain free. PAST MEDICAL HISTORY: Hypertension, type 2 diabetes, liver cirrhosis, anemia. PAST SURGICAL HISTORY: She denies any abdominal surgery. FAMILY HISTORY: Noncontributory. SOCIAL HISTORY: The patient does not smoke, drink or use illicit drugs. ALLERGIES: There are no known drug allergies. REVIEW OF SYSTEMS: A 12-point review of systems was performed with the patient is negative other than the pertinent positives mentioned in the history of present illness. CURRENT MEDICATIONS: Include Maalox, albuterol, ceftriaxone, Lovenox, Robitussin, insulin, Atrovent, metformin, Zofran, Protonix. PHYSICAL EXAMINATION: VITAL SIGNS: Blood pressure is 124/64, pulse 81 beats per minute, respiratory rate of 17, temperature 98.6, oximetry 97%. GENERAL: The patient is lying on her back. She is alert and oriented x 3, in no apparent distress. HEAD, EARS, EYES, NOSE AND THROAT: Normocephalic and atraumatic appearing head. Pupils are equal and reactive to light. Extraocular muscles are intact. Moist mucous membranes. NECK: Supple. No JVD or thyromegaly or lymphadenopathy. CHEST: Clear to auscultation bilaterally. CARDIOVASCULAR: S1 and S2 are present, regular rate and rhythm. ABDOMEN: Distended, soft otherwise. No guarding, no rebound. There is a fluid wave. EXTREMITIES: 1+ pitting edema bilaterally. Pulses are not present. SKIN: There is no jaundice. LABORATORY DATA: The white blood cell count is 3.5, hemoglobin 9.3, platelet count is 60. Sodium 137, BUN 16, creatinine 0.7. Total bilirubin 1.4, AST 44, ALT 22, total protein 6.8, lipase 42. IMAGING: An abdomen and pelvis CT was performed without contrast and this shows moderate amount of ascites, portal venous hypertension, mesenteric edema, question of air collection around the transverse portion of the duodenum, may represent peritonitis and a distended stomach with gastric content. There is mild diverticulosis. IMPRESSION: This is a 73-year-old female with history of liver cirrhosis, thought to be due to possibly fatty liver disease, hypertension and type 2 diabetes, admitted to the hospital with chest pain, dizziness, abdominal distention and pain. 1. Liver cirrhosis, currently decompensated by ascites. 2. Abdominal pain and bloating. 3. Abnormal CT scan. 4. Diabetes and hypertension. DISCUSSION: Her liver cirrhosis seems to decompensated at this point by ascites. Given her CT scan findings, she is reporting that she has never had a paracentesis prior, so this will likely need to be done on this admission. Additionally, the CT scan that had no contrast showed a possible air collection around the duodenum, which is unusual; thus, we will need to perform a CT with oral and IV contrast to look at this more carefully to ensure that there is no perforation or malignancy in this area. If this is negative, then a paracentesis should be performed to drain the ascites and test for SBP via cell count. After this, the patient may do well with some diuretics in the standard cirrhotic doses of Lasix 20 mg and Aldactone 50 mg to help prevent ascites buildup. RECOMMENDATIONS: 1. We will order CT with IV and p.o. contrast to re-examine the duodenum as stated above. 2. We will order a paracentesis with cell count. 3. Consider diuretics after the above is complete. 4. The patient will need outpatient hepatology followup and likely outpatient EGD for variceal screening. 5. We will send an AFP and viral panel with morning labs. Thank you for allowing me to participate in her care. Please call with any questions. [facility]# [id number]
[2018-10-29] MEDS: INSULIN LISPRO SLIDING SCALE 100 UNITS/ML UNIT SUBQ SCH ×2 (07:30→11:30)
--- NOTE | 2018-10-29 07:36 | Diagnostic Imaging Report ---
Exam: CT examination abdomen HISTORY: Abscess. Total DLP equals 315 CTDI equals 8.9 Findings: Multiple contiguous thin section of the abdomen obtained from lower thorax to upper pelvis with administration of oral and intravenous contrast material, study correlated with the prior exam of 10/26/2018. The study demonstrates normal aeration of lung parenchyma the bases. The liver demonstrates no evidence for focal lesions. Cirrhotic changes cannot be excluded. Large ascites. The spleen is enlarged. The gallbladder is distended. Oral contrast progresses normal fashion. The colon. The kidneys concentrate and excrete contrast in normal fashion. Atherosclerotic vascular calcifications are noted. There is no evidence for free air. Aortic is calcified. There is evidence for umbilical hernia with mesentery content and fluid collection from ascites. Mild diverticulosis IMPRESSION: Large degree of ascites. Question of hepatic cirrhosis. Splenomegaly. Fluid-filled umbilical hernia. Mild diverticulosis without diverticulitis.
[2018-10-29] MEDS ORDERED: Enoxaparin 40 mg/0.4 mL 0.4mL Syr SUBQ SCH (08:00)
--- NOTE | 2018-10-29 08:14 | General Progress Note ---
Subjective - Review of Systems Service Date: 10/29/18 Subjective: Asking to be released today. Refused paracentesis yesterday. Tolerating a diet Objective - Results Result Diagrams: 10/28/18 05:35 10/28/18 05:35 Recent Labs: Laboratory Last Values WBC 3.5 Th/cmm (4.8-10.8) L 10/28/18 05:35 RBC 3.00 Mil/cmm (3.80-5.20) L 10/28/18 05:35 Hgb 9.3 gm/dL (12-16) L 10/28/18 05:35 Hct 27.7 % (41.0-60) L 10/28/18 05:35 MCV 92.5 fl (81-100) 10/28/18 05:35 MCH 30.9 pg (27.0-31.0) 10/28/18 05:35 MCHC Differential 33.4 pg (28.0-36.0) 10/28/18 05:35 RDW 14.2 % (11.5-20.0) 10/28/18 05:35 Plt Count 60 Th/cmm (150-400) L 10/28/18 05:35 MPV 8.1 fl 10/28/18 05:35 Neutrophils % 57.5 % (40.0-80.0) 10/28/18 05:35 Lymphocytes % 26.6 % (20.0-50.0) 10/28/18 05:35 Monocytes % 11.8 % (2.0-10.0) H 10/28/18 05:35 Eosinophils % 3.3 % (0.0-5.0) 10/28/18 05:35 Basophils % 0.8 % (0.0-2.0) 10/28/18 05:35 Sodium 137 mEq/L (136-145) 10/28/18 05:35 Potassium 3.6 mEq/L (3.5-5.1) 10/28/18 05:35 Chloride 109 mEq/L (98-107) H 10/28/18 05:35 Carbon Dioxide 22.5 mEq/L (21.0-31.0) 10/28/18 05:35 Anion Gap 9.1 (7.0-16.0) 10/28/18 05:35 BUN 16 mg/dL (7-25) 10/28/18 05:35 Creatinine 0.7 mg/dL (0.6-1.2) 10/28/18 05:35 Est GFR ( Amer) TNP 10/28/18 05:35 Est GFR (Non-Af Amer) TNP 10/28/18 05:35 BUN/Creatinine Ratio 22.9 10/28/18 05:35 Glucose 138 mg/dL (70-105) H 10/28/18 05:35 POC Glucose 134 MG/DL (70 - 105) H 10/29/18 05:54 Whole Bld Lactic Acid 1.13 mmol/L (0.60-1.99) 10/26/18 22:20 Calcium 8.5 mg/dL (8.6-10.3) L 10/28/18 05:35 Magnesium 2.0 mg/dL (1.9-2.7) 10/28/18 05:35 Total Bilirubin 1.4 mg/dL (0.3-1.0) H 10/26/18 22:20 Direct Bilirubin 0.54 mg/dL (0.0-0.2) H 10/26/18 22:20 AST 44 U/L (13-39) H 10/26/18 22:20 ALT 22 U/L (7-52) 10/26/18 22:20 Alkaline Phosphatase 269 U/L (34-104) H 10/26/18 22:20 Troponin I 0.01 ng/mL (0.01-0.05) 10/26/18 22:20 B-Natriuretic Peptide 50.1 pg/mL (5.0-100.0) 10/28/18 05:35 Total Protein 6.8 gm/dL (6.0-8.3) 10/26/18 22:20 Albumin 2.8 gm/dL (3.7-5.3) L 10/26/18 22:20 Globulin 4.0 gm/dL 10/26/18 22:20 Albumin/Globulin Ratio 0.7 (1.0-1.8) L 10/26/18 22:20 Lipase 42 U/L (11-82) 10/26/18 22:20 Urine Source RANDOM 10/26/18 22:00 Urine Color YELLOW 10/26/18 22:00 Urine Clarity HAZY (CLEAR) 10/26/18 22:00 Urine pH 6.0 (4.6 - 8.0) 10/26/18 22:00 Ur Specific [place] 1.020 (1.005-1.030) 10/26/18 22:00 Urine Protein 30 mg/dL (NEGATIVE) H 10/26/18 22:00 Urine Glucose (UA) >=1000 mg/dL (NEGATIVE) H 10/26/18 22:00 Urine Ketones NEGATIVE mg/dL (NEGATIVE) 10/26/18 22:00 Urine Blood MODERATE (NEGATIVE) H 10/26/18 22:00 Urine Nitrate NEGATIVE (NEGATIVE) 10/26/18 22:00 Urine Bilirubin NEGATIVE (NEGATIVE) 10/26/18 22:00 Urine Urobilinogen 4.0 E.U./dL (0.2 - 1.0) H 10/26/18 22:00 Ur Leukocyte Esterase TRACE (NEGATIVE) H 10/26/18 22:00 Urine RBC 0-2 /hpf (0-5) 10/26/18 22:00 Urine WBC 6-10 /hpf (0-5) H 10/26/18 22:00 Ur Epithelial Cells FEW /lpf (FEW) 10/26/18 22:00 Urine Bacteria MODERATE /hpf (NONE SEEN) H 10/26/18 22:00 - Physical Exam Vitals and I&O: Vital Signs Temp 98.4 F 10/29/18 04:00 Pulse 81 10/29/18 07:46 Resp 18 10/29/18 07:46 BP 146/74 10/29/18 04:00 Pulse Ox 94 10/29/18 07:46 Intake & Output 10/28/18 10/29/18 10/29/18 18:59 06:59 18:59 Intake Total 300 50 240 Balance 300 50 240 Weight (lbs) 59.874 kg 59.874 kg Intake: Intake, IV Amount 50 cefTRIAXone 1 gm In 50 Sodium Chloride 0.9% 50 ml @ 100 mls/hr IV Q24HR [facility] Rx#:[id number] Oral 300 240 Other: # Voids 2 # Bowel Movements 1 0 Stool Characteristics Soft Formed Brown Weight Source Bedscale Bedscale Active Medications: Current Medications Al Hydrox/Mg Hydrox/Simethicone (Maalox) 30 ml PO Q6HR PRN PRN Reason: Dyspepsia Stop: 12/26/18 04:22 Albuterol Sulfate (Albuterol 2.5mg/3ml Neb Ud) 2.5 mg HHN Q2HRT PRN PRN Reason: Shortness of Breath or Wheeze Stop: 12/26/18 04:22 Enoxaparin Sodium (Lovenox) 40 mg SUBQ Q24HR [facility] Stop: 12/28/18 07:59 Furosemide (Lasix) 20 mg PO DAILY [facility] Stop: 12/28/18 08:59 Guaifenesin (Robitussin) 100 mg PO Q4H PRN PRN Reason: Cough or Congestion Stop: 12/26/18 04:22 Ceftriaxone Sodium 1 gm/ (Sodium Chloride) 50 mls @ 100 mls/hr IV Q24HR [facility] Stop: 12/26/18 21:59 Last Infusion: 10/28/18 22:16 Dose: Infused Insulin Human Lispro (Humalog Insulin Sliding Scale) 0 units SUBQ ACHS [facility]; Protocol Stop: 12/26/18 07:29 Last Admin: 10/28/18 21:42 Dose: 2 units Ipratropium [place] (Atrovent Neb 0.5mg/2.5ml) 0.5 mg HHN Q2HRT PRN PRN Reason: Shortness of Breath or Wheeze Stop: 12/26/18 04:22 Ondansetron HCl (Zofran) 4 mg IV Q8H PRN PRN Reason: Nausea / Vomiting Stop: 12/26/18 04:22 Pantoprazole Sodium (Protonix) 40 mg IVP DAILY [facility] Stop: 12/26/18 08:59 Last Admin: 10/28/18 09:11 Dose: 40 mg Spironolactone (Aldactone) 50 mg PO DAILY [facility] Stop: 12/28/18 08:59 General: Alert, Oriented x3, No acute distress HEENT: Mucous membr. moist/pink Neck: Supple, JVD Cardiovascular: Regular rate Abdomen: Bowel sounds, Soft, Hepatomegaly, Splenomegaly, Distended, Other ( small ascites), no Rebound, no Mass, no Guarding Extremities: Pulses (normal) Neurological: Normal gait, Normal speech, Strength at 5/5 X4 ext, Normal tone, Cranial nerves 3-12 NL, Reflexes 2+ Assessment/Plan - Assessment Assessment: # Cirrhosis, perhaps from NAFLD # Ascites # Elevated LFTs Presenting distension is due to large volume ascites. The initial CT questioned a duodenal perforation or abscess, but repeat CT with contrast shows normal bowel and no free air. Paracentesis ordered with appropriate studies on 10/28, but the pt has refused several times. She feels better and wants no further procedure Plan: - would recommend paracentesis for comfort and to rule out SBP, although pt not allowing this - start lasix 20 and aldactone 50, and this can be uptitrated in this ratio as her electrolytes and Cr allow - low salt diet - outpt EGD for variceal screen - US due in 6 months Nutritional Asmnt/Malnutr-PDOC - Dietary Evaluation Malnutrition Findings (Please click <Entered> for more info): Nutritional Asmnt/Malnutrition Start: 10/27/18 13: 11 Text: Status: Complete Freq: Protocol: Document 10/27/18 13:11 KAILEY (Rec: 10/27/18 13:21 MMULCHANDNI MALONE- [id number]) Nutritional Asmnt/Malnutrition Patient General Information Nutritional Screening High Risk Consult Diagnosis Chest pain Pertinent Medical Hx/Surgical Hx HTN, diabetes, liver cirrhosis , anemia Subjective Information Patient states she would like some more jello; fair appetite . Current Diet Order/ Nutrition Support Clear liquid Patient / S.O Not Indicated Pertinent Medications maalox, humalog, metformin, zofran, protonix Pertinent Labs (10/26) Na 135, glucose 182-327 , Mg 1.7, albumin 2.8 Nutritional Hx/Data Height 1.5 m Height (Calculated Centimeters) 149.9 Current Weight (lbs) 59.874 kg Weight (Calculated Kilograms) 59.9 Weight (Calculated Grams) 02501.2 [place] Body Weight 97.5 % [place] Body Weight 135 Body Mass Index (BMI) 26.6 Recent Weight Change No Weight Status Overweight GI Symptoms GI Symptoms None Last BM none noted since admission Difficult in: None Food Allergies No Cultural/Ethnic/Samaritan Belief none indicated Usual diet at home unknown Skin Integrity/Comment: Heri 17, intact Estimated Nutritional Goals BEE in Kcals: Using Current wt Calories/Kcals/Kg CBW 60kg 22-27 kcal/kg Kcals Calculated ~4385-2067 kcal/day Protein: Using Current wt Protein g/k.8-1 gm/kg Protein Calculated ~50-60 gm/day Fluid: ml ~7439-6477 ml/day Nutritional Problem 2. Problem Problem Inadequate oral intake related to Etiology diet order not progressed Signs/Symptoms: aeb Meeting <50% of nutrient needs on clear liquid diet 1. Problem Problem Altered nutrition related lab values related to Etiology uncontrolled hyperglycemia aeb Signs/Symptoms: glucose 182-327 Intervention/Recommendation Comments 1. WHen medically appropriate, advance diet to 45 gm CCHO 2. MD to continue to modify insulin regimen for optimal glycemic control Expected Outcomes/Goals Expected Outcomes/Goals Diet progresses to 45 gm CCHO, glucose normalizes, oral intake <75% of meals, weight stable F/U MR
--- NOTE | 2018-10-29 12:50 | General Progress Note ---
Subjective - Review of Systems Service Date: 10/29/18 Subjective: --- Patient complaining of abdominal pain no complaint of shortness of breath Objective - Results Result Diagrams: 10/28/18 05:35 10/28/18 05:35 Recent Labs: Laboratory Last Values WBC 3.5 Th/cmm (4.8-10.8) L 10/28/18 05:35 RBC 3.00 Mil/cmm (3.80-5.20) L 10/28/18 05:35 Hgb 9.3 gm/dL (12-16) L 10/28/18 05:35 Hct 27.7 % (41.0-60) L 10/28/18 05:35 MCV 92.5 fl (81-100) 10/28/18 05:35 MCH 30.9 pg (27.0-31.0) 10/28/18 05:35 MCHC Differential 33.4 pg (28.0-36.0) 10/28/18 05:35 RDW 14.2 % (11.5-20.0) 10/28/18 05:35 Plt Count 60 Th/cmm (150-400) L 10/28/18 05:35 MPV 8.1 fl 10/28/18 05:35 Neutrophils % 57.5 % (40.0-80.0) 10/28/18 05:35 Lymphocytes % 26.6 % (20.0-50.0) 10/28/18 05:35 Monocytes % 11.8 % (2.0-10.0) H 10/28/18 05:35 Eosinophils % 3.3 % (0.0-5.0) 10/28/18 05:35 Basophils % 0.8 % (0.0-2.0) 10/28/18 05:35 Sodium 137 mEq/L (136-145) 10/28/18 05:35 Potassium 3.6 mEq/L (3.5-5.1) 10/28/18 05:35 Chloride 109 mEq/L (98-107) H 10/28/18 05:35 Carbon Dioxide 22.5 mEq/L (21.0-31.0) 10/28/18 05:35 Anion Gap 9.1 (7.0-16.0) 10/28/18 05:35 BUN 16 mg/dL (7-25) 10/28/18 05:35 Creatinine 0.7 mg/dL (0.6-1.2) 10/28/18 05:35 Est GFR ( Amer) TNP 10/28/18 05:35 Est GFR (Non-Af Amer) TNP 10/28/18 05:35 BUN/Creatinine Ratio 22.9 10/28/18 05:35 Glucose 138 mg/dL (70-105) H 10/28/18 05:35 POC Glucose 134 MG/DL (70 - 105) H 10/29/18 05:54 Whole Bld Lactic Acid 1.13 mmol/L (0.60-1.99) 10/26/18 22:20 Calcium 8.5 mg/dL (8.6-10.3) L 10/28/18 05:35 Magnesium 2.0 mg/dL (1.9-2.7) 10/28/18 05:35 Total Bilirubin 1.4 mg/dL (0.3-1.0) H 10/26/18 22:20 Direct Bilirubin 0.54 mg/dL (0.0-0.2) H 10/26/18 22:20 AST 44 U/L (13-39) H 10/26/18 22:20 ALT 22 U/L (7-52) 10/26/18 22:20 Alkaline Phosphatase 269 U/L (34-104) H 10/26/18 22:20 Troponin I 0.01 ng/mL (0.01-0.05) 10/26/18 22:20 B-Natriuretic Peptide 50.1 pg/mL (5.0-100.0) 10/28/18 05:35 Total Protein 6.8 gm/dL (6.0-8.3) 10/26/18 22:20 Albumin 2.8 gm/dL (3.7-5.3) L 10/26/18 22:20 Globulin 4.0 gm/dL 10/26/18 22:20 Albumin/Globulin Ratio 0.7 (1.0-1.8) L 10/26/18 22:20 Lipase 42 U/L (11-82) 10/26/18 22:20 Urine Source RANDOM 10/26/18 22:00 Urine Color YELLOW 10/26/18 22:00 Urine Clarity HAZY (CLEAR) 10/26/18 22:00 Urine pH 6.0 (4.6 - 8.0) 10/26/18 22:00 Ur Specific [place] 1.020 (1.005-1.030) 10/26/18 22:00 Urine Protein 30 mg/dL (NEGATIVE) H 10/26/18 22:00 Urine Glucose (UA) >=1000 mg/dL (NEGATIVE) H 10/26/18 22:00 Urine Ketones NEGATIVE mg/dL (NEGATIVE) 10/26/18 22:00 Urine Blood MODERATE (NEGATIVE) H 10/26/18 22:00 Urine Nitrate NEGATIVE (NEGATIVE) 10/26/18 22:00 Urine Bilirubin NEGATIVE (NEGATIVE) 10/26/18 22:00 Urine Urobilinogen 4.0 E.U./dL (0.2 - 1.0) H 10/26/18 22:00 Ur Leukocyte Esterase TRACE (NEGATIVE) H 10/26/18 22:00 Urine RBC 0-2 /hpf (0-5) 10/26/18 22:00 Urine WBC 6-10 /hpf (0-5) H 10/26/18 22:00 Ur Epithelial Cells FEW /lpf (FEW) 10/26/18 22:00 Urine Bacteria MODERATE /hpf (NONE SEEN) H 10/26/18 22:00 - Physical Exam Vitals and I&O: Vital Signs Temp 98.2 F 10/29/18 11:54 Pulse 80 10/29/18 11:54 Resp 18 10/29/18 11:54 BP 139/78 10/29/18 11:54 Pulse Ox 97 10/29/18 11:54 Intake & Output 10/28/18 10/29/18 10/29/18 18:59 06:59 18:59 Intake Total 300 50 240 Balance 300 50 240 Weight (lbs) 59.874 kg 59.874 kg Intake: Intake, IV Amount 50 cefTRIAXone 1 gm In 50 Sodium Chloride 0.9% 50 ml @ 100 mls/hr IV Q24HR [facility] Rx#:[id number] Oral 300 240 Other: # Voids 2 # Bowel Movements 1 0 Stool Characteristics Soft Formed Brown Weight Source Bedscale Bedscale Active Medications: Current Medications Al Hydrox/Mg Hydrox/Simethicone (Maalox) 30 ml PO Q6HR PRN PRN Reason: Dyspepsia Stop: 12/26/18 04:22 Albuterol Sulfate (Albuterol 2.5mg/3ml Neb Ud) 2.5 mg HHN Q2HRT PRN PRN Reason: Shortness of Breath or Wheeze Stop: 12/26/18 04:22 Enoxaparin Sodium (Lovenox) 40 mg SUBQ Q24HR [facility] Stop: 12/28/18 07:59 Last Admin: 10/29/18 09:30 Dose: 40 mg Furosemide (Lasix) 20 mg PO DAILY [facility] Stop: 12/28/18 08:59 Last Admin: 10/29/18 09:30 Dose: 20 mg Guaifenesin (Robitussin) 100 mg PO Q4H PRN PRN Reason: Cough or Congestion Stop: 12/26/18 04:22 Ceftriaxone Sodium 1 gm/ (Sodium Chloride) 50 mls @ 100 mls/hr IV Q24HR [facility] Stop: 12/26/18 21:59 Last Infusion: 10/28/18 22:16 Dose: Infused Insulin Human Lispro (Humalog Insulin Sliding Scale) 0 units SUBQ ACHS [facility]; Protocol Stop: 12/26/18 07:29 Last Admin: 10/29/18 11:30 Dose: Not Given Ipratropium [place] (Atrovent Neb 0.5mg/2.5ml) 0.5 mg HHN Q2HRT PRN PRN Reason: Shortness of Breath or Wheeze Stop: 12/26/18 04:22 Ondansetron HCl (Zofran) 4 mg IV Q8H PRN PRN Reason: Nausea / Vomiting Stop: 12/26/18 04:22 Pantoprazole Sodium (Protonix) 40 mg IVP DAILY [facility] Stop: 12/26/18 08:59 Last Admin: 10/29/18 09:30 Dose: 40 mg Spironolactone (Aldactone) 50 mg PO DAILY [facility] Stop: 12/28/18 08:59 Last Admin: 10/29/18 09:30 Dose: 50 mg General: Alert, Oriented x3, No acute distress HEENT: Mucous membr. moist/pink Neck: Supple, JVD Cardiovascular: Regular rate Abdomen: Bowel sounds, Soft, Hepatomegaly, Splenomegaly, Distended, Other ( small ascites), no Rebound, no Mass, no Guarding Extremities: Pulses (normal) Neurological: Normal gait, Normal speech, Strength at 5/5 X4 ext, Normal tone, Cranial nerves 3-12 NL, Reflexes 2+ Assessment/Plan - Assessment Assessment: Cirrhosis of liver Splenomegaly Anemia Thrombocytopenia Diabetes mellitus type 2 insulin-dependent Supraumbilical hernia Diverticulosis Hypo magnesium - Plan Plan: Patient to have a GI consult Echocardiogram magnesium supplement Nutritional Asmnt/Malnutr-PDOC - Dietary Evaluation Malnutrition Findings (Please click <Entered> for more info): Nutritional Asmnt/Malnutrition Start: 10/27/18 13: 11 Text: Status: Complete Freq: Protocol: Document 10/27/18 13:11 MMULCHANDNI (Rec: 10/27/18 13:21 MMULCHANDNI MALONE- FNS1) Nutritional Asmnt/Malnutrition Patient General Information Nutritional Screening High Risk Consult Diagnosis Chest pain Pertinent Medical Hx/Surgical Hx HTN, diabetes, liver cirrhosis , anemia Subjective Information Patient states she would like some more jello; fair appetite . Current Diet Order/ Nutrition Support Clear liquid Patient / S.O Not Indicated Pertinent Medications maalox, humalog, metformin, zofran, protonix Pertinent Labs (10/26) Na 135, glucose 182-327 , Mg 1.7, albumin 2.8 Nutritional Hx/Data Height 1.5 m Height (Calculated Centimeters) 149.9 Current Weight (lbs) 59.874 kg Weight (Calculated Kilograms) 59.9 Weight (Calculated Grams) 33815.2 [place] Body Weight 97.5 % [place] Body Weight 135 Body Mass Index (BMI) 26.6 Recent Weight Change No Weight Status Overweight GI Symptoms GI Symptoms None Last BM none noted since admission Difficult in: None Food Allergies No Cultural/Ethnic/Restorationist Belief none indicated Usual diet at home unknown Skin Integrity/Comment: Heri 17, intact Estimated Nutritional Goals BEE in Kcals: Using Current wt Calories/Kcals/Kg CBW 60kg 22-27 kcal/kg Kcals Calculated ~5716-7729 kcal/day Protein: Using Current wt Protein g/k.8-1 gm/kg Protein Calculated ~50-60 gm/day Fluid: ml ~0438-9814 ml/day Nutritional Problem 2. Problem Problem Inadequate oral intake related to Etiology diet order not progressed Signs/Symptoms: aeb Meeting <50% of nutrient needs on clear liquid diet 1. Problem Problem Altered nutrition related lab values related to Etiology uncontrolled hyperglycemia aeb Signs/Symptoms: glucose 182-327 Intervention/Recommendation Comments 1. WHen medically appropriate, advance diet to 45 gm CCHO 2. MD to continue to modify insulin regimen for optimal glycemic control Expected Outcomes/Goals Expected Outcomes/Goals Diet progresses to 45 gm CCHO, glucose normalizes, oral intake <75% of meals, weight stable F/U MR
--- NOTE | 2018-10-29 14:28 | Cardiology ---
10/27/[address] Mack. M-MODE ECHOCARDIOGRAM: Anterior leaflet of mitral valve shows normal excursion, EF velocity. Posterior leaflet of the mitral valve shows normal excursion. Left ventricular posterior wall shows increased thickness, normal excursion. Interventricular septum shows increased thickness, normal excursion. There is hypertrophy of the left ventricle, ejection fraction 62%. Left atrium normal. Aortic root shows normal dimension, normal excursion of aortic leaflets. CONCLUSION: Hypertrophy of the left ventricle, ejection fraction 62%. 2D ECHO: Long axis view showed hypertrophy of the left ventricle. Left atrium normal. Aortic root shows normal dimension with decreased excursion of aortic leaflets. Short axis view of mitral valve normal. Short axis view of aortic valve shows aortic valve shows aortic stenosis. Apical four chamber view showed normal sized left ventricle with hypertrophy of the left ventricle. Left atrium normal. Right ventricular cavity, right atrium normal, no pericardial effusion. CONCLUSION: Hypertrophy of the left ventricle, aortic stenosis. Doppler study shows mild mitral regurgitation, mild tricuspid regurgitation, aortic valve area 1.21 cm2 with mean pressure gradient 33 mmHg. Right ventricular systolic pressure 33 mmHg. JOB# [id number]
[2018-10-30 15:09] LABS: AFP TUMOR MARKER 3.4 ng/mL (0.0-8.3); HEP A AB IGM Negative (Negative); HEP B CORE IGM Negative (Negative); HEP B SURFACE AG QL Negative (Negative); HEP C ANTIBODY 0.1 s/co ratio (0.0-0.9)
--- NOTE | 2018-11-06 20:57 | Discharge Summary ---
DATE OF DISCHARGE: 10/29/2018 DICTATED FOR: Dr. Sadi Mack. DISCHARGE DIAGNOSES: Acute urinary tract infection, acute renal failure, hypomagnesemia, hypertension, congestive heart failure, chronic obstructive pulmonary disease, type 2 diabetes. HISTORY OF PRESENT ILLNESS: This is a 73-year-old female, who is accompanied by grandson at bedside. According to grandson at bedside, the patient has been having dizziness associated with chest pain for 3 days. The patient was also complaining of abdominal pain every time she eats certain foods. The patient states that she does not remember what type of food that it was that she ate that triggered her abdominal pain. The patient was complaining of feeling bloated for about a month. No reports of any fevers at home. PHYSICAL EXAMINATION: GENERAL: The patient is well developed, well nourished, in no apparent distress. VITAL SIGNS: Stable. HEAD: Normocephalic, atraumatic. NECK: Supple. No mass. LUNGS: Clear bilaterally. HEART: Regular rhythm. ABDOMEN: Soft, nontender. HOSPITAL COURSE: During the hospitalization, the patient was admitted to the telemetry unit. The patient was seen by Cardiology and also GI. The patient was recommended by GI for paracentesis; however, the patient refused to have paracentesis done as she states that she does not want to have the procedure done as she has plan to have it at [facility]. I explained to the patient the importance of having paracentesis done. The patient still refused. During hospitalization, the patient's abdominal pain has resolved as well as chest discomfort. For this reason, the patient was stable for discharge. CONDITION UPON DISCHARGE: Fair. DISPOSITION: Home. The patient was educated to follow up with PCP and to be referred to a GI regarding paracentesis. JOB# [id number]
== END 2018-10-29 12:45 | disposition home or self-care (01) | DRG 442 ==
LOC: ER 21:44 → TELE 10-27 01:15
PROVIDERS: ADMIT Internal Medicine; ATTEND Internal Medicine
DX: K76.6 Portal hypertension (principal); N17.9 Acute kidney failure, unspecified; D61.818 Other pancytopenia; R18.8 Other ascites; N39.0 Urinary tract infection, site not specified; E44.1 Mild protein-calorie malnutrition; K74.60 Unspecified cirrhosis of liver; R16.1 Splenomegaly, not elsewhere classified; E83.42 Hypomagnesemia; E11.9 Type 2 diabetes mellitus without complications; K57.30 Diverticulosis of large intestine without perforation or abscess without bleeding; K43.9 Ventral hernia without obstruction or gangrene; D50.9 Iron deficiency anemia, unspecified; E87.6 Hypokalemia; E66.01 Morbid (severe) obesity due to excess calories; I50.9 Heart failure, unspecified; I11.0 Hypertensive heart disease with heart failure; J44.9 Chronic obstructive pulmonary disease, unspecified; Z53.29 Procedure and treatment not carried out because of patient's decision for other reasons; Z68.26 Body mass index [BMI] 26.0-26.9, adult
CPT/HCPCS: 36415-UA; 71045-TC; 74160-TC; 80048-TC; 80074-90; 80076-TC; 81001-TC; 82105-90; 82948-90; 83036-90; 83605; 83690-TC; 83735-TC; 83880-TC; 84484-TC; 85025-TC; 87086-90; 89051-TC; 93005; 94760; C9113; J0696; J1650; J3475; J7040